=== PATIENT | male | born 1950 | race Caucasian/White ===

== ENCOUNTER 2020-04-03 10:23 | Emergency (ER) | payer MEDICARE, OTHER ==
[~2020-04-03] VITALS: Ht 177.8 cm; Wt 49.9 kg
[~2020-04-03 10:23] MED LIST: ALBU90OI6; ASPI81CH PO
[2020-04-03 12:10] LABS: BASOPHILS ABSOLUTE AUTO 0.06 K/mm3 (0.00-0.23); BASOPHILS PERCENT AUTO 1 % (0-2); EOSINOPHILS ABSOLUTE AUTO 0.01 K/mm3 (0.00-0.68); EOSINOPHILS PERCENT AUTO 0 % (0-6); Hematocrit 44.3 % (37.0-53.0); Hemoglobin 15.3 g/dL (13.5-17.5); IMMATURE GRAN ABSOLUTE AUTO 0.07 K/mm3 (0.00-0.10); IMMATURE GRAN PERCENT AUTO 1 % (0-1); LYMPHOCYTES PERCENT AUTO 14 % (21-46); MONOCYTES ABSOLUTE AUTO 0.95 K/mm3 (0.16-1.47); MONOCYTES PERCENT AUTO 10 % (4-13); Mean Corpuscular HGB 33.6 pg (26.0-34.0); Mean Corpuscular HGB Conc 34.5 g/dL (31.5-36.5); Mean Corpuscular Volume 97 fL (80-100); Mean Platelet Volume 9.5 fL (9.1-12.4); NEUTROPHILS ABSOLUTE AUTO 6.84 K/mm3 (1.96-9.15); NEUTROPHILS PERCENT AUTO 74 % (41-73); Platelet Count 358 K/mm3 (150-400); RDW Coefficient Variation 11.7 % (11.7-14.2); RDW Standard Deviation 42.2 fL (35.1-46.3); Red Blood Cell Count 4.55 M/mm3 (4.30-5.90); White Blood Cell Count 9.23 K/mm3 (4.00-11.30)
[2020-04-03 12:26] LABS: Alanine Aminotransfer (ALT/SGP 34 U/L (12-78); Albumin, Blood 3.6 g/dL (3.4-5.0); Albumin/Globulin Ratio 0.9 (0.8-1.8); Alk Phos 67 U/L (50-136); Anion Gap 8 mmol/L (6-16); Aspartate Aminotrans (AST/SGOT 72 U/L (12-37); Blood Urea Nitrogen 4 mg/dL (8-24); Bun/Creatinine Ratio 9.9 (12.0-20.0); CO2, Blood 29 mmol/L (21-32); Calcium, Blood 9.1 mg/dL (8.5-10.1); Chloride, Blood 92 mmol/L (98-108); Creatinine, Blood 0.41 mg/dL (0.60-1.20); Globulin, Blood 4.1 g/dL (2.2-4.0); Glomerular Filtration Rate >60 (60-); Glucose, Blood 102 mg/dL (70-99); Potassium, Blood 3.3 mmol/L (3.5-5.5); Sodium, Blood 129 mmol/L (136-145); Total Protein, Blood 7.7 g/dL (6.4-8.2); Troponin I <0.015 ng/mL (0.000-0.040)
[2020-04-03] MEDS ORDERED: ALBU90OI INH (12:57)
[2020-04-03] MEDS ORDERED: Prednisone20 MG PO (12:57)
[2020-04-07] MEDS ORDERED: FLUTICASONE-SA1 EA11 INH (11:28)
[2020-04-07] MEDS ORDERED: AZIT250 PO (11:28)
[2020-04-07] MEDS ORDERED: PRED20 PO (11:28)
[2020-04-07] MEDS ORDERED: NICO21TP TOP (11:33)
== END 2020-04-03 13:20 | disposition home or self-care (01) ==
LOC: ER 10:23
PROVIDERS: Emergency Medicine
DX: J44.1 Chronic obstructive pulmonary disease with (acute) exacerbation (principal); C34.90 Malignant neoplasm of unspecified part of unspecified bronchus or lung; I73.9 Peripheral vascular disease, unspecified; F17.220 Nicotine dependence, chewing tobacco, uncomplicated; Z79.82 Long term (current) use of aspirin; Z79.899 Other long term (current) drug therapy
CPT/HCPCS: 36415; 71045; 71260; 80053; 83880; 84484; 85025; 93005; 93010; 93922; 99285-25; Q9967

== ENCOUNTER 2020-04-22 22:54 | Observation (INO) | payer MEDICARE, OTHER ==
[~2020-04-22] VITALS: Ht 175.3 cm; Wt 41.6 kg
[~2020-04-22 22:54] MED LIST changes: +ALBU90OI INH; +AZIT250 PO; +FLUTICASONE-SA1 EA11 INH; +NICO21TP TOP; +PRED20 PO; +Prednisone20 MG PO
[2020-04-22 23:23] LABS: BASOPHILS ABSOLUTE AUTO 0.07 K/mm3 (0.00-0.23); BASOPHILS PERCENT AUTO 1 % (0-2); EOSINOPHILS ABSOLUTE AUTO 0.04 K/mm3 (0.00-0.68); EOSINOPHILS PERCENT AUTO 0 % (0-6); Hematocrit 40.2 % (37.0-53.0); Hemoglobin 13.3 g/dL (13.5-17.5); IMMATURE GRAN ABSOLUTE AUTO 0.13 K/mm3 (0.00-0.10); IMMATURE GRAN PERCENT AUTO 1 % (0-1); LYMPHOCYTES ABSOLUTE AUTO 1.26 K/mm3 (0.84-5.20); LYMPHOCYTES PERCENT AUTO 12 % (21-46); MONOCYTES ABSOLUTE AUTO 1.16 K/mm3 (0.16-1.47); MONOCYTES PERCENT AUTO 11 % (4-13); Mean Corpuscular HGB 33.3 pg (26.0-34.0); Mean Corpuscular HGB Conc 33.1 g/dL (31.5-36.5); Mean Corpuscular Volume 101 fL (80-100); Mean Platelet Volume 9.3 fL (9.1-12.4); NEUTROPHILS ABSOLUTE AUTO 8.16 K/mm3 (1.96-9.15); NEUTROPHILS PERCENT AUTO 76 % (41-73); Platelet Count 299 K/mm3 (150-400); RDW Coefficient Variation 12.3 % (11.7-14.2); White Blood Cell Count 10.82 K/mm3 (4.00-11.30)
[2020-04-22 23:47] LABS: Alanine Aminotransfer (ALT/SGP 28 U/L (12-78); Albumin, Blood 3.1 g/dL (3.4-5.0); Albumin/Globulin Ratio 0.8 (0.8-1.8); Alk Phos 78 U/L (50-136); Anion Gap 5 mmol/L (6-16); Aspartate Aminotrans (AST/SGOT 99 U/L (12-37); Bilirubin, Total 0.8 mg/dL (0.1-1.0); Blood Urea Nitrogen 7 mg/dL (8-24); Bun/Creatinine Ratio 14.1 (12.0-20.0); CO2, Blood 33 mmol/L (21-32); Calcium, Blood 9.4 mg/dL (8.5-10.1); Chloride, Blood 97 mmol/L (98-108); Glomerular Filtration Rate >60 (60-); Glucose, Blood 110 mg/dL (70-99); Potassium, Blood 3.9 mmol/L (3.5-5.5); Sodium, Blood 135 mmol/L (136-145); Total Protein, Blood 7.1 g/dL (6.4-8.2); Troponin I <0.015 ng/mL (0.000-0.040)
[2020-04-22 23:56] LABS: Magnesium, Blood 2.3 mg/dL (1.6-2.4)
--- NOTE | 2020-04-23 04:24 | NUR ---
COPY SUPERVISOR SUMMARY RECEIVED PT AROUND 0300 FROM ED. PT APPEARS FRAIL AND VERY MALNURISHED. PT O2 SAT ARE >89 ON 2L NASAL CANULA. PT IS PLEASANT AND COOPERATIVE BUT REPEATEDLY REFERENCES HIS WHICH HE BELIEVES IS SOON. PT DENIES CHEST PAIN AND DOES NOT APPEAR SOB AT REST.
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
--- NOTE | 2020-04-23 18:08 | NUR ---
SHIFT SUMMARY: PT TRANSITIONED TO COMFORT CARE THIS MORNING. IS PERIODICALLY SOB AT REST, BUT DENIES DYSPNEA TO THIS AUTHOR. TOLERATING PO INTAKE, BUT DOES COUGH WHILE EATING. DENIED PAIN. IN GOOD SPIRITS, HAD VISITS FROM ROOMMATE AND SPIRITUAL CARE TODAY. GOT UP TO BR, GAIT VERY UNSTEADY, WILL USE BSC GOING FORWARD. PLAN IS HOSPICE PLACEMENT.
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
--- NOTE | 2020-04-24 03:49 | NUR ---
SHIFT SUMMARY: PT IS ALERT AND ORIENTED. PT IS CALM AND COOPERATIVE WITH CARE. PT CALLS APPROPRIATELY. PT IS A 1 PERSON ASSIST. PT DENIES PAIN, NAUSEA, VOMITING, AND SOB. PT SLEPT MUCH OF THE NIGHT WHEN NOT DISTURBED. NO ACUTE CHANGES OR COMPLICATIONS. BED IN LOW POSITION, CALL LIGHT WITHIN REACH. WILL CONTINUE TO MONITOR.
--- NOTE | 2020-04-24 13:04 | NUR ---
Comfort Care Visit Pt resting in bed and denies pain at this time. Pt appears dyspneic and is struggling to speak. Pt has difficulty speaking more than one word. Pt agreeable for Roxanol to help with dyspnea. Spoke with Bedside RN Carolee and relayed Pt's request for Roxanol. Palliative Care will remain available.
--- NOTE | 2020-04-24 18:22 | NUR ---
SHIFT SUMMARY: ON COMFORT CARE. C/O PAIN AND DYSPNEA; MEDICATED PER EMAR. SLEEPS AFTER MORPHINE ADMINISTRATION, APPEARS COMFORTABLE. COUGHING NOTED WHILE EATING LUNCH; DIET CHANGED TO PUREED AND IS TOELRATING BETTER. VOICE IS VERY HOARSE. AWAITING PLACEMENT.
--- NOTE | 2020-04-25 04:37 | NUR ---
SHIFT SUMMARY- PT. ON COMFORT CARE. A&OX3, ABLE TO USE THE URINAL AT BEDSIDE. PULL UP ON FOR OCCASIONAL INCONTINENCE. NO COMPLAINTS OF PAIN LAST NIGHT, DENIED PAIN MEDICATION. PT. CAN INDEPENDENTLY REPOSITION HIMSELF, 1 ASSIST FOR AMBULATION. PT. RESTING QUIETLY IN BED WATCHING TV AT THIS TIME. NO APPARENT DISTRESS NOTED. CALL LIGHT WITHIN REACH, SIDE RAILS UPX2, AND BED IN LOW POSITION. WILL CONT TO MONITOR.
--- NOTE | 2020-04-25 15:53 | NUR ---
PT IS A/O, PLESANT AND COOPERATIVE. HE IS EATING AND DRINKIG WELL. VOIDING IN URINAL. REPORT GIVEN TO CHERIE KEE FOR REMAINDER OF SHIFT
--- NOTE | 2020-04-25 16:00 | NUR ---
Assumed Care Received report from VIDHYA Pyle. Patient resting in bed. Denies pain. Appears to be comfortable. Received in report that patient is independent in room and awaiting placement. Will continue to monitor.
--- NOTE | 2020-04-25 17:39 | NUR ---
Shift Summary A/O, able to make needs known. Report received that patient was independent, have not seen patient gotten out of bed since assumption of care this afternoon. Pleasant and cooperative. 2L NC and resting comfortably in bed. Denies any needs, denies pain. Appetite is fairly good.
--- NOTE | 2020-04-26 06:01 | NUR ---
SHIFT SUMMARY- ON COMFORT CARE. A&O, PLEASANT. MEDICATED 1X FOR C/O CHEST PAIN 11/02 WITH GOOD EFFECT. PT. RESTED CONFORTABLY IN BED T/O THE NIGHT, NO APPARENT DISTRESS NOTED. CALL LIGHT WITHIN REACH AND SIDE RAILS UPX2. WILL CONT TO MONITOR.
--- NOTE | 2020-04-26 09:35 | NUR ---
Comfort care visit Stopped by Masoud's room to visit with him. He is currently sleeping and appears to be in no distress. His resp are even and shallow but not labored, RR 28. He did not open his eyes when I knocked on the door and entered the room. Left Masoud undisturbed at this time. Will plan to continue to visit for emotional support and symptom managment.
--- NOTE | 2020-04-26 18:13 | NUR ---
SHIFT SUMMARY- PT IS A/O, PLESANT AND COOPERATIVE. HE SLEPT FOR MUCH OF THIS SHIFT. HE IS EATING AND DRINKING WELL. HE HAS DENIED ANY PAIN THIS SHIFT.
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
--- NOTE | 2020-04-27 12:04 | NUR ---
Pt resting in bed upon arrival. Pt's voice is very quiet. Pt denies pain and reports comfort at this time. No concerns reported at this time. Spoke with Bedside VIDHYA Quiroga. Current regimen is managing Pt's symptoms. No concerns at this time. Palliative Care will remain available.
--- NOTE | 2020-04-27 18:27 | NUR ---
PT REMAINS ON COMFORT CARE, CM LOOKING FOR PLACEMENT, DISCHARGE ON HOSPICE. MEDICATED FOR PAIN X1 THIS MORNING, DENIED PAIN/DISCOMFORT THE REST OF THE SHIFT. NO ACUTE CHANGES NOTED, WILL CONTINUE TO MONITOR AND REPORT TO ONCOMING RN
--- NOTE | 2020-04-27 23:55 | NUR ---
04/27/20 2200 SLEEPING WITHOUT DISTRESS OR DISCOMFORT.
--- NOTE | 2020-04-28 00:10 | NUR ---
04/28/20 0000 C/O DRY EYES AND EYE DROPS APPLIED TO BOTH EYES PER SEP. NO OTHER COMPLAINTS. DRINKING SODA WELL.
--- NOTE | 2020-04-28 07:19 | NUR ---
04/28/20 0600 PT SLEPT ON AND OFF. ONLY COMPLAINT WAS DRY EYES AROUND MIDNIGHT. EYE DROPS GIVEN. REPOSITIONED SIDE TO SIDE WITH HELP ATTENDS BIEF CHECKED AND CHANGED PRN INCONTINENCE.
--- NOTE | 2020-04-28 15:12 | NUR ---
Pt resting in bed with his eyes closed. Pt opens his eyes to gentle verbal stimuli. Pt denies pain and dyspnea at this time. He reports no concerns at this time. Spoke with Bedside VIDHYA Quiroga and discussed case. Palliative Care will remain available.
--- NOTE | 2020-04-28 18:04 | NUR ---
NO ACUTE CHANGES NOTED THIS SHIFT, PT REMAINS ON COMFORT CARE AND IS AWAITING DISCHARGE PLACEMENT. WILL CONTINUE TO MONITOR AND REPORT TO ONCOMING RN
--- NOTE | 2020-04-29 00:15 | NUR ---
04/28/20 2305 C/O LEVEL "8" BUTTOCKS PAIN. MEDICATED PER MAR AND REPOSITIONED TO SIDE. NO OTHER COMPLAINTS.
--- NOTE | 2020-04-29 04:57 | NUR ---
04/29/20 0400 PT SLEEPING WELL AFTER PAIN MED GIVEN ABOUT 11PM. PT HAS A VERY SOFT WHISPER WHEN TALKING. ENCOURAGED ORAL INTAKE AND DOES DRINK SIPS OF FLUIDS WHEN REMINDED. MEDICATED FOR DRY EYES ONCE THIS SHIFT. ENCOURAGED TO STAY OFF BACK HE IS THIN AND HAS REDNESS TO COCCYX. MEPILEX DRESSING INTACT TO COCCYX.
--- NOTE | 2020-04-29 09:30 | NUR ---
Comfort care visit: Masoud is awake in his room this morning. He states that he slept well last night. He denies any symptoms at present. He is aware that is working on a plan for discharge placement with hospice. He states that lots of people are in and out of his room all day long. Offered to place a do not disturb note on door for him to get some rest. He declined it for now, but reports that he would appreciate less interuptions at night so he can sleep. Nursing updated.
--- NOTE | 2020-04-29 09:31 | NUR ---
AM ASSESSMENT PT RESTING IN BED WITH NO COMPLAINTS OF PAIN/DISCOMFORT, SOB, OR ANXIETY. PT HAD BREATHING TREATMENT THIS AM, LUNGS SOUNDS ARE RASPY AND SLIGHT WHEEZING NOTED. PT APPEARS WEAK AND DECONDITIONED.
--- NOTE | 2020-04-29 12:44 | NUR ---
PT SITTING UP IN BED EATING LUNCH AND WATCHING TELEVISION. STATES HE IS NOT IN ANY DISCOMFORT OR PAIN. OCCASIOANL COUGH NOTED AT THIS TIME.
--- NOTE | 2020-04-29 13:19 | NUR ---
PT HAS PRODUCTIVE MOIST COUGH. HE STATES IT IS MUCUS AND NOT CAUSING HIM SOB. OFFERED PT A SUCTIONING DEVICE AND SHOWED HIM HOW TO USE IT SO HE CAN SUCK THE MUCUS OUT PRN. PT STATED HE UNDERSTAND HOW TO USE IT AND TO CALL IF HE HAS ANY QUESTIONS OR CONCERNS.
--- NOTE | 2020-04-29 14:28 | NUR ---
PT IS SLEEPING AND APPEARS TO BE IN NO DISCOMFORT.
--- NOTE | 2020-04-29 16:58 | NUR ---
SHIFT SUMMARY NO ACUTE CHANGES T/O SHIFT, PT IS STILL ON COMFORT CARE AWAITING DISCHARGE PLACEMENT. NO COMPLAINTS OF PAIN, DISCOMFORT, SOB, OR ANXIETY T/O SHIFT. PRODUCTIVE COUGH NOTED, PROVIDED PT WITH SUCTION TO USE PRN. PT ATE/DRANK T/O DAY WELL. WILL CONTINUE TO MONITOR PT AND REPORT TO THE UNCOMING NURSE.
--- NOTE | 2020-04-29 17:53 | NUR ---
PT IS SITTING UP ENJOYING DINNER
--- NOTE | 2020-04-30 07:46 | NUR ---
AM ASSESSMENT PT WAS SLEEPING WHEN ENTERED THE ROOM, PROVIDED AM MEDICATIONS. LUNGS SOUNDS ARE DIMINISHED T/O, RESPIRATIONS WERE SHORT AND RAPID. HE REPORTED HE IS EXPERIENCING SOB, BREATHING TREATMENT REQUESTED BY PT. CALLED RT AND BG IS IN THERE NOW. WILL REASSESS PT AFTER. PT IS ON 2 L/MIN O2 NC. PT REPORTS NO PAIN/DISCOMFORT OR ANXIETY.
--- NOTE | 2020-04-30 08:18 | NUR ---
REASSESSED PT AFTER BREATHING TREATMENT, HE STATED HE FEELS A LOT BETTER AND IS NOT SO SHORT OF BREATH. ALSO NOTICED PT IS NOT BREATHING RAPIDLY AND SHALLOW HE WAS PRIOR TO THE TREATMENT. PT IS SITTING UP WATCHING TV.
--- NOTE | 2020-04-30 12:51 | NUR ---
PT SITTING UP AND EAITNG WHILE WATCHING TV.
--- NOTE | 2020-04-30 14:21 | NUR ---
PT IS SLEEPING, NO PAIN/DISCOMFORT NOTICED.
--- NOTE | 2020-04-30 15:23 | NUR ---
ATTENDS AND MEPILEX PAD CHANGE. PT NOW LYING DOWN AND WATCHING TV. NO COMPLAINTS OF PAIN/DISCOMFORT.
--- NOTE | 2020-04-30 16:50 | NUR ---
SHIFT SUMMARY NO ACUTE CHANGES T/O SHIFT. PT IS ALERT AND RESPONDS TO VERBAL STIMULI. PT REPORTED SOME SOB THIS AM AND WAS TREATED WITH A BREATHING TX. PT REPPORTED HE IS WAS NO LONGER SOB AFTER, HIS RESPIRATIONS WERE NOT SHALLOW AND RAPID AFTER WELL. ON 2 L/MIN O2 NC. MEPILEX ON BOTTOM WAS CHANGED TODAY, PAIN MEDICATION AND EYE DROPS ALSO GIVEN TODAY PER PT REQUEST.
--- NOTE | 2020-05-01 04:50 | NUR ---
SHIFT SUMMARY NO ACUTE CHANGES OVERNIGHT. PT DENIES NEEDS, AFFECT IS FLAT AND WITHDRAWN. PT DOES NOT WANT TO BE WOKEN UP OR DISTURBED BY STAFF, AND BECOMES EASILY AGITATED WHEN HE IS WOKEN UP. HE COMMUNICATES WHEN HIS ATTENDS NEED TO BE CHANGED AND INDEPENDENTLY REPOSITIONS HIMSELF IN BED. COMFORT ASSESSED T/O SHIFT. PT HAS SLEPT MOST OF THE NIGHT AND APPEARS COMFORTABLE. BED IN LOWEST POSITION, CALL LIGHT WITHIN REACH.
--- NOTE | 2020-05-01 18:11 | NUR ---
PT AxOx2-3 TODAY. HE HAS BEEN VERY SLEEPY. MEDICATED WITH MORPHINE x2 THIS SHIFT AND EYE DROPS PRN. PT ALLOWED ONE BRIEF CHANGE MID DAY SOILED WITH URINE AND SMEAR OF BM. NEW MEPLILEX PLACED ON COCCYX. DECLINED OFFER TO INSERT YO. COMFORT CARE ASSESSMENTS PERFORMED @2 HOURS. PT FREQUENTLY DENIES NEEDS. ALLOWED SOME MUCUS SUCTIONING PRN. LITTLE TO NO APPETITE. PT CURRENTLY SLEEPING IN BED WITH CALL LIGHT IN REACH. CASE MANAGEMENT IS STILL SEARCHING FOR PLACEMENT.
--- NOTE | 2020-05-02 04:47 | NUR ---
SUMMARY PT COMFORT HAS BEEN MAINTAINED. PT CURRENTLY SLEEPING AND IN NO DISTRESSS. WCTM.
--- NOTE | 2020-05-02 09:34 | NUR ---
Spiritual care visit conducted. Patient is nonresponsive to voice or touch. I provide prayer, gentle touch and scripture reading during my 50 minute visit.
--- NOTE | 2020-05-02 11:00 | NUR ---
PT BATHED PT BATHED & PLACED ON LEFT SIDE. PT ORAL CARE COMPLETED & SUCTIONED.
--- NOTE | 2020-05-02 11:52 | NUR ---
PT NOTE TIME OF CALLED BY THIS RN AT 1137. CHARGE NURSE, SHAWNA NOTIFIED. DR KHAN NOTIFIED. NO FAMILY LISTED IN PATIENT'S CHART TO NOTIFY. PT BATHED AND MEDICATED PRIOR TO PASSING. APPEARED TO BE LYING COMFORTABLY IN BED SURROUNDED BY NURSE AND AIDE AT TIME OF .
--- NOTE | 2020-05-02 12:43 | NUR ---
FAMILY CONTACTS ULISSES & NURA (BROTHER & SISTER IN LAW)- [phone] & [phone] GARRISON (DAUGHTER)- [phone]
--- NOTE | 2020-05-02 15:45 | NUR ---
TRANSFERRED TO HOME PT [facility]. TRANSPORTER, YOANNA MCCLAIN HERE TO TAKE PATIENT AND BELONGINGS. WILL CALL FAMILY AFTER TRANSFERRED.
== END 2020-05-02 11:37 ==
LOC: ER 22:54 → MEDS 22:55
PROVIDERS: Emergency Medicine; ADMIT Family Medicine
DX: J96.21 Acute and chronic respiratory failure with hypoxia (principal); Z20.828 Contact with and (suspected) exposure to other viral communicable diseases; J44.1 Chronic obstructive pulmonary disease with (acute) exacerbation; C34.02 Malignant neoplasm of left main bronchus; I73.9 Peripheral vascular disease, unspecified; E43 Unspecified severe protein-calorie malnutrition; Z79.899 Other long term (current) drug therapy; Z66 Do not resuscitate; F17.220 Nicotine dependence, chewing tobacco, uncomplicated; E87.1 Hypo-osmolality and hyponatremia; D63.0 Anemia in neoplastic disease; Z68.1 Body mass index [BMI] 19.9 or less, adult
CPT/HCPCS: 36415; 71045; 80053; 83735; 83880; 84484; 85025; 93005; 93010; 94640; 94760; 96372; 99285-25; G0378; J1650; U0003